=== PATIENT | male | born 1970 | race Caucasian/White ===

== ENCOUNTER 2024-11-04 02:34 | Emergency (ER) | payer MEDICAID, SELFPAY ==
[2024-11-04 02:37] VITALS: BP 159/89; PULSE 129; RESP 20; TEMP 36.9; O2SAT 97
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
[2024-11-04] MEDS: LORazepam 2 MG/ML VIAL IM (02:47)
[2024-11-04 04:21] VITALS: BP 112/79; PULSE 118; RESP 20; O2SAT 94
[2024-11-04 04:50] VITALS: RESP 20
== END 2024-11-04 04:51 ==
LOC: SERX 05:48
PROVIDERS: Emergency Provider Emergency Medicine
DX: Z02.89 Encounter for other administrative examinations (principal); Z04.1 Encounter for examination and observation following transport accident; F10.129 Alcohol abuse with intoxication, unspecified
CPT/HCPCS: 96372; 99283; J2060